=== PATIENT | female | born 1945 | race Caucasian/White ===

== ENCOUNTER 2016-10-09 11:30 | Inpatient (IN) | payer BC ==
[2016-10-03 20:19] LABS: HEMATOCRIT 42.3 % (36.0-48.0); HEMOGLOBIN 14.1 g/dL (12.0-16.0)
[2016-10-03 20:32] LABS: BUN (BLOOD UREA NITROGEN) 23 MG/DL (6-23); CALCIUM, SERUM 8.9 MG/DL (8.5-10.4); CHLORIDE, SERUM 105 MMOL/L (96-112); CO2 (CARBON DIOXIDE) 29 MMOL/L (24-34); CREATININE 0.68 MG/DL (0.55-1.02); GFR AFRICAN AMERICAN 101 ML/MIN (>=60); GFR NON AFRICAN AMERICAN 87 ML/MIN (>=60); GLUCOSE, SERUM 81 MG/DL (60-99); POTASSIUM, SERUM 4.1 MMOL/L (3.5-5.3); SODIUM, SERUM 143 MMOL/L (135-148)
--- NOTE | ~2016-10-09 | OP ---
Record Of Operation [facility] [address] [place]. [address] NAME: ZAK ESPINOZA : 41 STATUS : ADM IN PAT#: [id number] AGE: 71 ADM/REG DATE : 10/09/16 MR#: [id number] REPORT SERV DATE: 10/10/16 DICTATED BY: BILL ANDINO DATE: 10/10/16 REPORT STATUS : Draft TRANSCRIBED BY: MODL DATE: 10/10/16 DATE OF PROCEDURE: 10/09/2016 PREOPERATIVE DIAGNOSES: 1. Severe spinal stenosis, foraminal zone, left L2-3. 2. Complete facetectomy necessary creating instability and the need for arthrodesis. 3. Painful retained hardware, L3-4. POSTOPERATIVE DIAGNOSES: 1. Severe spinal stenosis, foraminal zone, left L2-3. 2. Complete facetectomy necessary creating instability and the need for arthrodesis. 3. Painful retained hardware, L3-4. PROCEDURES: 1. Microscopic navigation assisted surgery. 2. Hardware removal, L3-4. 3. Left L2-3 hemilaminectomy, foraminotomy, facetectomy, transforaminal discectomy, anterior interbody Capstone cage insertion, posterior lateral interbody fusion. 4. Posterior percutaneous instrumentation Voyager system. SURGEON: Bill Andino D.O. SALES SERVICE PROFESSIONAL: Cleveland Caldwell. ANESTHESIA: General. BLOOD LOSS: 75 mL. INDICATION FOR SURGERY: Risks were explained. They are listed in last office note as well as the history and physical. See that for detail. DESCRIPTION OF PROCEDURE: Antibiotic prophylaxis given. Neurophysiology monitoring leads inserted. The patient was brought to the operative suite. General anesthetic including endotracheal intubation was administered. Garcia catheter was placed with sterile technique. The patient was placed prone on a Robert spine frame. Bony prominences were carefully padded. Thoracolumbar spine scrubbed with Hibiclens solution. DuraPrep was painted. Sterile drapes applied. Because of the complexity of surgery and the need to identify correct level of surgery intraoperatively as well as desire to carry out the safest and most precise dissection, I felt intraoperative navigation was mandatory. A small stab wound was carried out over the right posterior superior iliac spine. A percutaneous pin with navigational frame attached was inserted in PSIS. Intraoperative CT scan with O-arm obtained. CT information used to register the navigational system. Record Of Operation [facility] [address] [place]. [address] NAME: ZAK ESPINOZA : 43 STATUS : ADM IN PAT#: [id number] AGE: 71 ADM/REG DATE : 10/09/16 MR#: [id number] REPORT SERV DATE: 10/10/16 DICTATED BY: BILL ANDINO DATE: 10/10/16 REPORT STATUS : Draft TRANSCRIBED BY: BROOKE DATE: 10/10/16 With navigational assistance, I identified the L3-4 level. Era over the position of the hardware at L3-4, I started a skin incision of approximately 3 cm. I started and moved proximal just lateral to the facet joint of L2-3. This would allow hardware removal and the necessary surgery at L2-3. I started on the right side. I did this initially to the right side. I then placed a blunt navigated probe through the fascia and muscle and docked over the hardware. The microscope was sterilely draped and used throughout the remainder of the procedure. The hardware was easily visualized. The set screw was removed. The july was removed and each of the screws were removed. I did explore the fusion which was a posterior lateral fusion that had been completed elsewhere and it did appear to be a solid arthrodesis. The wound was irrigated. The retractor was removed. I moved to the left side and I did the same identical steps. I carried out a 3 cm skin incision starting at the midportion of the hardware at L3-4 extending proximal 3 cm just lateral to the facet joint of L2-3. Once again, I placed a tubular retractor over the hardware of L3-4 and again removed the hardware in a like manner. Again, the hardware was solid and appeared well fixed. There was a solid fusion. I then mobilized the skin slightly proximal. I placed a blunt navigated probe through the fascia and muscle and docked over the facet joint of L2-3. Muscle dilators were inserted followed by placement of a tubular retractor. Once we docked over the tubular retractor at L2-3, the soft tissue were debrided. I then identified the top of the pedicle of L3, the inferior pedicle of L2, and I started from lateral to medial with a 2 mm and 3 mm kenji bur as well as a 2 and 3 mm Kerrison rongeur. I dissected from lateral to medial removing the entire superior facet articular process of L3 down to the top of the pedicle. I removed the pars interarticularis, the inferior articular process, and the remaining lamina of L2. There had been some lamina previously removed. Local bone graft was morselized and used for fusion. There was severe facet hypertrophy that was relieved producing the stenosis that was causing such severe nerve impingement both on the exiting L2 as well as the traversing L3 nerve root. The superior medial portion of the superior facet of L3 was really the main culprit in the pathology. A transforaminal discectomy was then carried out with curettes, rongeurs, and disc berta. The wounds were irrigated. Intradiscal trial was carried out. I placed the local bone graft in the interbody space along with a small dosage of bone morphogenic protein. 8 mm x 32 mm cage was inserted through the transforaminal approach into the midline against the anterior longitudinal ligament. A posterolateral interbody fusion was completed with additional bone grafting material. The retractor was then removed. I used a navigated Voyager pedicle tap and screw insurance billing clerk. I tapped the pedicles of L2 bilaterally, L3 already had a tugboat pilot hole. I then placed the 5.5 x 50 mm polyaxial Voyager screws at L2 and 6.5 x 50 mm screws at L3. The 40 mm contoured lordotic dumbbell july was placed through the top portion of the screw extenders, reduced into the tulip of the pedicle screw. The set screws inserted and tightened with a torque wrench providing rigid stability. Screw extenders removed. Intraoperative CT scan with O-arm repeated showing excellent position of all implants. Record Of Operation [facility] [address] [place]. [address] NAME: ZAK ESPINOZA : 41 STATUS : ADM IN PAT#: [id number] AGE: 71 ADM/REG DATE : 10/09/16 MR#: [id number] REPORT SERV DATE: 10/10/16 DICTATED BY: BILL ANDINO DATE: 10/10/16 REPORT STATUS : Draft TRANSCRIBED BY: MODL DATE: 10/10/16 After final irrigation, the fascial layer was closed with just a single interrupted #1 Vicryl suture. The subcutaneous tissue closed with 2-0 Vicryl sutures, 2-0 vertical mattress nylon suture used for skin closure. Sterile dressings applied. The patient was then returned to supine position, awakened, extubated, taken to recovery room in satisfactory condition having tolerated the procedure well. Sponge, needle, and instrument counts were correct. No intraoperative complications noted. ROXANE/BROOKE Bill Andino D.O. / [id number] CC: Bill Andino D.O.
--- NOTE | ~2016-10-09 | DS ---
Discharge Summary [facility] [address] [place]. [address] NAME: ZAK ESPINOZA : 41 STATUS : DIS IN PAT#: [id number] AGE: 71 ADM/REG DATE : 10/09/16 MR#: [id number] REPORT SERV DATE: 10/19/16 DICTATED BY: BILL ANDINO DATE: 10/18/16 REPORT STATUS : Draft TRANSCRIBED BY: MODNita DATE: 10/18/16 Data Collection from hospitalization DISCHARGE DIAGNOSES: 1. Severe spinal stenosis, foraminal zone, left L2-L3. 2. Complete facetectomy necessary creating instability and the need for arthrodesis. 3. Painful retained hardware, L3-4. 4. Hypertension. 5. History of breast cancer. 6. Osteoarthritis. 7. Hypercholesterolemia. 8. Gastroesophageal reflux disease. CONSULTATIONS: None. PROCEDURES PERFORMED: Microscopic navigation-assisted surgery; hardware removal, L3-L4; left L2-L3 hemilaminectomy, foraminotomy, facetectomy, transforaminal diskectomy, anterior interbody Capstone cage insertion, and posterior lateral interbody fusion; posterior percutaneous instrumentation Voyager System on 10/09/2016. PATHOLOGY: Lumbar bone and tissue, L2-3 and removed old spinal hardware - fragments of hyaline cartilage with degenerative changes and moderate deposits of basophilic crystalline material consistent with pseudogout, fibrous tissue, skeletal muscle, and bone present. Orthopedic hardware - see gross description. MEDICATIONS: Tylenol two tablets twice a day, aspirin 81 mg at bedtime, Caltrate plus D 600 mg daily, CoQ10 100 mg daily as instructed, Benadryl 50 mg at bedtime as needed, [place] 7.5/325 one tablet every four hours as needed, Prinivil 10 mg daily, Robaxin 500 mg every eight hours, Toprol-XL 50 mg twice a day, Ocuvite one tablet daily, multivitamins one tablet daily, Prilosec 10 mg daily, Ultram 50 mg twice a day as needed, and Ambien 10 mg at bedtime as needed. CONDITION AT DISCHARGE: Stable. DISPOSITION: The patient was discharged home on a regular diet with activities as instructed. She would follow up with Dr. Marilou Haskins on 10/25/2016. HOSPITAL COURSE: This is a 71-year-old female who has had a prior fusion at L3-4 while living in [place]. She has now developed adjacent segment degeneration and severe pain in the left L2 distribution. Plain x-rays revealed severe disk narrowing and there were some laminotomy changes that were present. The patient has had a left L2 selective nerve root block, which gave her complete relief of her pain for a few days. On the scan, she had severe foraminal stenosis on the left at L2-3. The patient also had some spondylolisthesis at L2-3 as well. She had failed all forms of conservative care and elected to proceed with surgical intervention. She was admitted to the hospital at this time for further evaluation and treatment. Upon admission, she was taken to the operating room where she underwent the above-mentioned Discharge Summary [facility] [id number] [place]. [address] NAME: ZAK ESPINOZA : 41 STATUS : DIS IN PAT#: [id number] AGE: 71 ADM/REG DATE : 10/09/16 MR#: [id number] REPORT SERV DATE: 10/19/16 DICTATED BY: BILL ANDINO DATE: 10/18/16 REPORT STATUS : Draft TRANSCRIBED BY: MODNita DATE: 10/18/16 procedure. She tolerated this well, and there were no complications. On postop day #1, she was evaluated by Physical Therapy. She was doing well. The left groin and thigh pain had resolved. She was changed to oral medications. Over the next couple of days, discharge planning was performed. Her pain continued to improve. She said she was sleeping okay. On 10/12/2016, she was doing well. She was transferring okay. She did have a bowel movement. Discharge instructions were given. Due to her improved and stable condition, she was discharged home with the above-stated instructions. Information collected by: Sue Hubbard I submit the above information as my discharge summary. TG/BROOKE Bill Andino D.O. / [id number] CC: Angelo Escobar SUSAN GAILE
--- NOTE | ~2016-10-09 | PREOPHP ---
PreOp History and Physical [facility] [address] [place]. [address] NAME: ZAK ESPINOZA : 41 STATUS : ADM IN PAT#: [id number] AGE: 71 ADM/REG DATE : 10/09/16 MR#: [id number] REPORT SERV DATE: 10/09/16 DICTATED BY: BILL ANDINO DATE: 10/09/16 REPORT STATUS : Draft TRANSCRIBED BY: MODNita DATE: 10/09/16 CHIEF COMPLAINT: Back pain and left thigh pain. HISTORY OF PRESENT ILLNESS: A very pleasant, very active, 71-year-old female who has had a prior fusion at L3-4 while living in [place]. She has now developed adjacent segment degeneration and severe pain in her left L2 distribution. Plain x-rays reveal severe disk narrowing, and there are some laminotomy changes that are present. The patient has had a left L2 selective nerve root block, which gave her complete relief of her pain for a few days. The patient does have on her later scan, a severe foraminal stenosis on the left at L2-3. The patient also does have some spondylolisthesis at L2-3 as well. Having failed all forms of conservative care, with the above findings she is brought to surgery for a microscopic and navigation assisted surgery and that will include removal of the hardware at L3-4. Then, there will be a left-sided L2-3 hemilaminotomy, foraminotomy, facetectomy, transforaminal diskectomy, anterior interbody cage insertion, posterior lateral interbody fusion with local bone graft and allograft, and posterior percutaneous instrumentation at L2 3. Prior to surgery, risks, benefits, alternatives, and expectations have been explained. Consent form is signed. PAST MEDICAL HISTORY: Includes osteoarthritis. She has had a cardiac murmur, hypertension, hypercholesterolemia, gastroesophageal reflux disease, and she had breast cancer. PAST SURGICAL HISTORY: Tebbetts tooth extraction, tonsillectomy, adenoidectomy, tubal ligation, skin biopsy, lumpectomy of the breast, hysterectomy, D and C, colonoscopy, cataract extraction, lens implant, carpal tunnel release, a trigger finger release, and a lumbar fusion on 08/06/2015 done in [place]. CURRENT MEDICATIONS: Include: Tramadol, Celebrex, CoQ10, Neurontin, Prilosec, and Valium p.r.n. ALLERGIES: NONE. SOCIAL HISTORY: She is , retired, and does not use any tobacco or alcohol. FAMILY HISTORY: Noncontributory. REVIEW OF SYSTEMS: She denies any chest pain, pressure, or shortness of breath. Has no recent change in overall bowel or bladder function. PHYSICAL EXAMINATION: VITAL SIGNS: She is 5 feet 2 inches, 142 pounds, BMI is 26.1. GENERAL: She is alert, cooperative, well oriented, and ambulates independently. HEENT: Exam is grossly normal. LUNGS: Clear to auscultation. HEART: Rate is regular and rhythmic. ABDOMEN: Soft with good bowel sounds. No peritoneal signs are noted. SPINE: The spine itself has previous incision which is well healed. There is limited range PreOp History and Physical [address] [address] NAME: ZAK ESPINOZA : 41 STATUS : ADM IN [facility]#: [id number] AGE: 71 ADM/REG DATE : 10/09/16 MR#: [id number] REPORT SERV DATE: 10/09/16 DICTATED BY: BILL ANDINO DATE: 10/09/16 REPORT STATUS : Draft TRANSCRIBED BY: MODL DATE: 10/09/16 of motion due to pain. With coaxing, she can heel-walk and toe-walk. Patella and Achilles reflexes are both absent. There is no actual dermatomal sensory deficit. There is weakness of the left iliopsoas graded 4/5 and the adductors 4/5 on the left. All others are normal. There is no evidence of myelopathy. Hetal signs are negative. Fabere signs are negative. Orthopedically, she has no pain with moving the hips, knees, or ankles. There are good pulses in all four extremities. No abnormal skin lesions are found. ASSESSMENT AND RECOMMENDATIONS: As listed above. /MODL Bill Andino D.O. / [id number] CC: Angelo Escobar Susan Gaile
[~2016-10-09 11:30] MED LIST: 8 HOUR650 MG PO; AMB10 PO; ASAB PO; BEN25 PO; CALTRA600D PO; CELEBREX2 PO; CO Q-10100 MG PO; MULTIPLE VIT PO; OCUVITE PO; PRILOSEC10 MG PO; PRIN10 PO; TOPXL50 PO; ULTRAM50 PO
[2016-10-10 04:50] LABS: BASOPHILS 0 %; EOSINOPHILS 0 %; IMMATURE GRANULOCYTES 0.3 %; IMMATURE GRANULOCYTES ABSOLUTE 0.02 10/3/uL (0.0-0.11); LYMPHOCYTES 9.6 %; LYMPHOCYTES ABSOLUTE 0.61 10/3/uL (0.67-4.30); MEAN CORPUS HGB CONC 34.2 g/dL (32.0-36.0); MEAN CORPUSCULAR HEMOGLOB 30.8 pg (26.0-34.0); MEAN PLATELET VOLUME 9.1 fL (9.2-13.0); MONOCYTES 2.2 %; MONOCYTES ABSOLUTE 0.14 10/3/uL (0.21-1.20); NEUTROPHILS 87.9 %; NEUTROPHILS ABSOLUTE 5.58 10/3/uL (2.02-8.40); PLATELET COUNT 268 10/3/uL (150-400); RBC DISTRIBUTION WIDTH 12.6 % (12.0-16.0); RED CELL COUNT 4.22 10/6/uL (4.0-5.6); WHITE BLOOD CELLS 6.4 10/3/uL (4.5-10.5)
[2016-10-10 04:51] LABS: MANUAL DIFF NO %
[2016-10-10 05:22] LABS: CHLORIDE, SERUM 106 MMOL/L (96-112); CO2 (CARBON DIOXIDE) 25 MMOL/L (24-34); GFR AFRICAN AMERICAN 111 ML/MIN (>=60); GFR NON AFRICAN AMERICAN 96 ML/MIN (>=60); POTASSIUM, SERUM 3.9 MMOL/L (3.5-5.3); SODIUM, SERUM 141 MMOL/L (135-148)
[2016-10-10 05:23] LABS: BUN (BLOOD UREA NITROGEN) 17 MG/DL (6-23); GLUCOSE, SERUM 139 MG/DL (60-99)
[2016-10-12] MEDS ORDERED: NORCO1 TA2 PO (08:17)
[2016-10-12] MEDS ORDERED: METHOC500B PO (08:17)
== END 2016-10-12 14:46 | disposition home or self-care (01) | DRG 460 ==
LOC: SDC/OF 11:30 → PACU 19:10 → 3SO 20:55
PROVIDERS: Orthopaedic Surgery Orthopaedic Surgery of the Spine
PROC: 0SP004Z Removal of Internal Fixation Device from Lumbar Vertebral Joint, Open Approach (ICD-10-PCS; principal; 2016-10-09 13:15)
PROC: 0SG00AJ Fusion of Lumbar Vertebral Joint with Interbody Fusion Device, Posterior Approach, Anterior Column, Open Approach (ICD-10-PCS; 2016-10-09 13:15)
PROC: 0ST20ZZ Resection of Lumbar Vertebral Disc, Open Approach (ICD-10-PCS; 2016-10-09 13:15)
PROC: 4A11X4G Monitoring of Peripheral Nervous Electrical Activity, Intraoperative, External Approach (ICD-10-PCS; 2016-10-09 13:15)
DX: M51.36 Other intervertebral disc degeneration, lumbar region (principal)
CPT/HCPCS: 36415; 80048; 82962; 85014; 85018; 85025; 86850; 86900; 86901; 87641; 88300; 88304; 88311; 93005; 97116-GP; 97161-GP; A9270-GY; C1713; J0690; J1170; J1644; J2250; J2405; J2550; J2710; J3010